=== PATIENT | female | born 1955 | race Caucasian/White ===

== ENCOUNTER 2017-03-10 11:09 | Emergency (ER) | payer OTHER ==
[2017-03-10 12:57] LABS: BASOPHILS % (AUTO) 0.2 %; EOSINOPHILS % (AUTO) 0.1 %; HGB - HEMOGLOBIN 12.4 g/dL (12.0-16.0); LYMPHOCYTES # (AUTO) 1.2 10^3/uL (1.5-3.5); LYMPHOCYTES % (AUTO) 8.1 %; MEAN CORPUSCULAR HEMOGLOBIN 31.8 pg (27.0-31.0); MEAN CORPUSCULAR HGB CONC 34.8 g/dL (32.0-36.0); MEAN CORPUSCULAR VOLUME 91.6 fL (81.0-99.0); MEAN PLATELET VOLUME 6.2 fL (7.9-10.8); MONOCYTES # (AUTO) 0.7 10^3/uL (0.0-1.0); MONOCYTES % (AUTO) 4.7 %; NEUTROPHILS # (AUTO) 13.4 10^3/uL (1.5-6.6); NEUTROPHILS % (AUTO) 86.9 %; PLT - PLATELET COUNT 298 10^3/uL (130-450); RED BLOOD COUNT 3.91 10^6/uL (4.20-5.40); RED CELL DISTRIBUTION WIDTH 13.1 % (12.0-15.0); WHITE BLOOD COUNT 15.4 x10^3/uL (4.8-10.8)
[2017-03-10] MEDS: SODIUM CHLORIDE 0.9% 1,000 ML IV ONE ×2 (13:00→13:57)
--- NOTE | 2017-03-10 13:08 | ED Physician Documentation ---
PD HPI NVD - Stated complaint Stated Complaint: DEHYDRATION - Chief complaint Chief Complaint: Fever - History obtained from History obtained from: Patient - History of Present Illness Timing - onset: How many days ago (several) Timing - duration: Days (several days of feeling ill with cough, nausea, fever, diarrhea. Not eating much due to lack of appetite. Went to Provider office today and was directed to come to the ED.) Timing - details: Gradual onset, Still present Associated symptoms: Fever, Abdominal pain (crampy intermittent.). No: Hematemesis, Melena, Dizzy, Near syncope / syncope Contributing factors: No: Bad food, Anticoagulated Worsened by: Eating Similar symptoms before: Has not had sx before Recently seen: Clinic Review of Systems Constitutional: reports: Fever, Chills, Myalgias Eyes: denies: Loss of vision Ears: denies: Ear pain Nose: denies: Rhinorrhea / runny nose, Congestion Throat: denies: Sore throat Respiratory: reports: Dyspnea, Cough, Wheezing GI: reports: Nausea, Diarrhea. denies: Abdominal Pain, Abdominal Swelling, Vomiting, Hematemesis, Bloody / black stool : denies: Dysuria, Frequency Skin: denies: Rash, Lesions, Abrasion (s), Laceration (s) PD PAST MEDICAL HISTORY - Past Medical History Cardiovascular: None Respiratory: None Neuro: None Endocrine/Autoimmune: None Psych: Depression - Past Surgical History General: Appendectomy - Present Medications Home Medications: Ambulatory Orders Medication Instructions Recorded Confirmed Albuterol Sulfate [Proair 03/10/17 Respiclick] Cephalexin [Keflex] 500 mg PO TID #15 capsule 03/10/17 Dexamethasone [Decadron] 4 mg PO DAILY #5 tablet 03/10/17 Diphenoxylate HCl/Atropine 1 each PO Q6H PRN #12 tablet 03/10/17 [Diphenoxylate-Atrop 2.5-0.025] Esomeprazole Magnesium 03/10/17 FLUoxetine [PROzac] 20 mg 03/10/17 Lisinopril 03/10/17 Loratadine 03/10/17 Ondansetron Odt [Zofran] 4 mg TL Q6H PRN #15 tablet 03/10/17 Topiramate 03/10/17 Venlafaxine [Effexor] 03/10/17 - Allergies Allergies/Adverse Reactions: Allergies Allergy/AdvReac Type Severity Reaction Status Date / Time codeine Allergy Itching Verified 03/10/17 11:17 - Social History Does the pt smoke?: No Smoking Status: Never smoker Does the pt drink ETOH?: No Does the pt have substance abuse?: Yes Substance Use and Type: Other - Immunizations Immunizations are current?: No - POLST Patient has POLST: No PD ED PE NORMAL - Vitals Vital signs reviewed: Yes - General General: Alert and oriented X 3, No acute distress, Well developed/nourished - HEENT HEENT: Ears normal, Pharynx benign. No: Moist mucous membranes - Neck Neck: Supple, no meningeal sign, No adenopathy - Cardiac Cardiac: RRR, No murmur - Respiratory Respiratory: Clear bilaterally - Abdomen Abdomen: Normal bowel sounds, Soft, Non distended, No organomegaly Results - Vitals Vitals: Vital Signs - 24 hr 03/10/17 03/10/17 03/10/17 11:22 13:01 16:46 Temperature 38.4 C H 35.7 C L Heart Rate 114 H 101 H 90 Respiratory 14 16 18 Rate Blood Pressure 97/70 121/74 137/63 H O2 Saturation 96 97 97 Oxygen O2 Source Room air - Labs Labs: Laboratory Tests 03/10/17 03/10/17 03/10/17 12:49 12:49 12:49 WBC 15.4 H RBC 3.91 L Hgb 12.4 Hct 35.8 L MCV 91.6 MCH 31.8 H MCHC 34.8 RDW 13.1 Plt Count 298 MPV 6.2 L Neut # 13.4 H Lymph # 1.[address] [place] # 0.7 Eos # 0.0 Baso # 0.0 Absolute Nucleated RBC 0.00 Nucleated RBC % 0.0 Sodium 135 Potassium 3.1 L Chloride 97 L Carbon Dioxide 20 L Anion Gap 18.0 H BUN 28 H Creatinine 1.8 H Estimated GFR (MDRD) 29 L Glucose 124 H Calcium 9.1 Magnesium 2.3 Total Bilirubin 1.3 H AST 44 H ALT 50 Alkaline Phosphatase 93 Total Protein 9.1 H Albumin 3.4 Globulin 5.7 H Albumin/Globulin Ratio 0.6 L Lipase 26 Urine Color Urine Clarity Urine pH Ur Specific [place] Urine Protein Urine Glucose (UA) Urine Ketones Urine Occult Blood Urine Nitrite Urine Bilirubin Urine Urobilinogen Ur Leukocyte Esterase Urine RBC Urine WBC Ur Epithelial Cells Ur Squamous Epith Cells Urine Bacteria Urine Casts Ur Microscopic Review Urine Culture Comments 03/10/17 14:00 WBC RBC Hgb Hct MCV MCH MCHC RDW Plt Count MPV Neut # Lymph # [place] # Eos # Baso # Absolute Nucleated RBC Nucleated RBC % Sodium Potassium Chloride Carbon Dioxide Anion Gap BUN Creatinine Estimated GFR (MDRD) Glucose Calcium Magnesium Total Bilirubin AST ALT Alkaline Phosphatase Total Protein Albumin Globulin Albumin/Globulin Ratio Lipase Urine Color BROWN Urine Clarity CLOUDY Urine pH 5.5 Ur Specific Sweet >=1.030 H Urine Protein 100 H Urine Glucose (UA) NEGATIVE Urine Ketones NEGATIVE Urine Occult Blood SMALL H Urine Nitrite NEGATIVE Urine Bilirubin NEGATIVE Urine Urobilinogen 4 H Ur Leukocyte Esterase MODERATE H Urine RBC 0-5 Urine WBC >25 H Ur Epithelial Cells RARE Transitional Ur Squamous Epith Cells FEW Squamous Urine Bacteria Many H Urine Casts 3-5 Hyaline Casts Ur Microscopic Review INDICATED Urine Culture Comments INDICATED - Rads (name of study) chest Radiology: Prelim report reviewed (normal xray/chest) PD MEDICAL DECISION MAKING - ED course Complexity details: reviewed results, re-evaluated patient (she is feeling more energetic and is hungry (good sign). ), considered differential, d/w patient Departure - Departure Disposition: Home, Self Care Clinical Impression: Dehydration, Hypokalemia, Viral illness UTI (urinary tract infection) Qualifiers: Urinary tract infection type: acute cystitis Hematuria presence: without hematuria Qualified Code(s): N30.00 - Acute cystitis without hematuria Diarrhea Qualifiers: Diarrhea type: presumed infectious Qualified Code(s): R19.7 - Diarrhea, unspecified Condition: Stable Record reviewed to determine appropriate education?: Yes Instructions: ED Dehydration, ED Diet High Potassium, ED UTI Cystitis Female Follow-Up: NATALIIA BENAVIDES [Primary Care Provider] - Prescriptions: Cephalexin [Keflex] 500 mg PO TID #15 capsule Dexamethasone [Decadron] 4 mg PO DAILY #5 tablet Diphenoxylate HCl/Atropine [Diphenoxylate-Atrop 2.5-0.025] 1 each PO Q6H PRN # 12 tablet PRN Reason: Diarrhea Ondansetron Odt [Zofran] 4 mg TL Q6H PRN #15 tablet PRN Reason: Nausea / Vomiting Comments: Drink lots of fluids. Small frequent meals of bland food initially. Ondansetron if needed for nausea. Lomotil if needed for diarrhea. Use Keflex as prescribed for the bladder infection. It sounds like he does have a viral illness with the respiratory symptoms nausea and diarrhea. There is no particular treatment for that per se. If we discover a bacterial cause of the diarrhea, will call you to change antibiotics or add another one. Dexamethasone daily for 5 days as an anti-inflammatory to help with cough and will also help with the rib pain. Add Tylenol if needed for pains. Discharge Date/Time: 03/10/17 17:07
[2017-03-10 13:09] LABS: ALBUMIN 3.4 g/dL (3.2-5.5); ALBUMIN/GLOBULIN RATIO 0.6 (1.0-2.2); BILIRUBIN,TOTAL 1.3 mg/dL (0.2-1.0); CALCIUM 9.1 mg/dL (8.5-10.3); CREATININE 1.8 mg/dL (0.4-1.0); TOTAL PROTEIN 9.1 g/dL (6.7-8.2)
[2017-03-10] MEDS ORDERED: SODIUM CHLORIDE 0.9% 1,000 ML IV ONE (13:41)
[2017-03-10] MEDS ORDERED: ONDANSETRON 4 MG/2 ML VIAL IVP STA (13:41)
[2017-03-10] MEDS ORDERED: POTASSIUM BICARB 25 MEQ TABLET PO STA (14:02)
[2017-03-10 14:11] LABS: GLUCOSE, URINE (UA) NEGATIVE (NEGATIVE); KETONES,URINE (UA) NEGATIVE (NEGATIVE); LEUKOCYTE ESTERASE, URINE MODERATE (NEGATIVE); NITRITE,URINE NEGATIVE (NEGATIVE); OCCULT BLOOD,URINE SMALL (NEGATIVE); PH,URINE 5.5 PH (5.0-7.5); PROTEIN,URINE 100 mg/dL (NEGATIVE); UROBILINOGEN,URINE 4 E.U./dL (NORMAL)
[2017-03-10 14:24] LABS: BILIRUBIN,URINE NEGATIVE (NEGATIVE); CLARITY,URINE CLOUDY (CLEAR); ICTOTEST,URINE NEGATIVE
[2017-03-10 14:25] LABS: BACTERIA,URINE Many /HPF (None Seen); CASTS, URINE 3-5 Hyaline Casts /LPF; RBC,URINE 0-5 /HPF (0-5); SQUAMOUS EPITHELIAL CELL,UR FEW Squamous (<= Few)
[2017-03-10 14:26] LABS: EPITHELIAL CELLS,UR RARE Transitional /HPF (<= Few)
--- NOTE | 2017-03-10 16:16 | XRAY Report ---
EXAM: CHEST RADIOGRAPHY EXAM DATE: 03/10/2017 03:58 PM. CLINICAL HISTORY: Cough and weakness. COMPARISON: Chest 09/09/2008. TECHNIQUE: 1 view. FINDINGS: Lungs/Pleura: No focal opacities evident. No pleural effusion. No pneumothorax. Mediastinum: Within exam limitations, the cardiomediastinal contour is normal. Other: None. IMPRESSION: Normal single view chest. [facility] Referring Provider Line: [phone] SITE ID: [id number]
[2017-03-10] MEDS ORDERED: KETOROLAC 60 MG/2 ML VIAL IVP STA (16:26)
[2017-03-10] MEDS ORDERED: cephALEXin 250 MG CAPSULE PO STA (16:27)
[2017-03-10 16:46] VITALS: BP 137/63
== END 2017-03-10 17:07 | disposition home or self-care (01) ==
LOC: ED 11:09
DX: E86.0 Dehydration (principal); E87.6 Hypokalemia; B34.9 Viral infection, unspecified; N30.00 Acute cystitis without hematuria
CPT/HCPCS: 36415; 71045; 80053; 81001; 83690; 83735; 85025; 87077; 87086; 87181; 96361; 96374; 96375; 99283; 99284; A9270; 81003

== ENCOUNTER 2017-03-17 13:27 | Emergency (ER) | payer OTHER ==
[2017-03-17] MEDS ORDERED: ONDANSETRON 4 MG/2 ML VIAL IVP STA (14:46)
[2017-03-17] MEDS ORDERED: ACETAMINOPHEN 1,000 MG/100 ML 100 ML IV STA (14:46)
[2017-03-17] MEDS ORDERED: SODIUM CHLORIDE 0.9% 1,000 ML IV ONE (14:46)
--- NOTE | 2017-03-17 15:03 | ED Physician Documentation ---
History of Present Illness - Stated complaint Stated Complaint: NAUSEA/FEVER/V/D/FEMALE - Chief complaint Chief Complaint: General - History obtained from History obtained from: Patient, Family (sister) - History of Present Illness Timing: How many days ago (several) - Additonal information Additional information: The patient is a 61-year-old female who complains of frontal headache, vomiting , and diarrhea, that has been increasing over the past 2 days. She also reports nonproductive cough. She denies fever. She was seen here 1 week ago and diagnosed with urinary tract infection and has been taking cephalexin since that time. Her dysuria has improved, but has not completely resolved. Review of Systems Constitutional: reports: Fatigue. denies: Fever Ears: denies: Tinnitus/ringing Nose: denies: Congestion Throat: denies: Sore throat Cardiac: denies: Chest pain / pressure Respiratory: reports: Cough. denies: Dyspnea GI: reports: Nausea, Vomiting, Diarrhea. denies: Abdominal Pain : reports: Dysuria Skin: denies: Rash Musculoskeletal: denies: Back pain, Extremity swelling Neurologic: reports: Generalized weakness, Headache. denies: Focal weakness, Numbness PD PAST MEDICAL HISTORY - Past Medical History Cardiovascular: None Respiratory: None Neuro: None Endocrine/Autoimmune: None Psych: Depression - Past Surgical History General: Appendectomy - Present Medications Home Medications: Ambulatory Orders Medication Instructions Recorded Confirmed Albuterol Sulfate [Proair 03/10/17 Respiclick] Cephalexin [Keflex] 500 mg PO TID #15 capsule 03/10/17 Dexamethasone [Decadron] 4 mg PO DAILY #5 tablet 03/10/17 Diphenoxylate HCl/Atropine 1 each PO Q6H PRN #12 tablet 03/10/17 [Diphenoxylate-Atrop 2.5-0.025] Esomeprazole Magnesium 03/10/17 FLUoxetine [PROzac] 20 mg 03/10/17 Lisinopril 03/10/17 Loratadine 03/10/17 Ondansetron Odt [Zofran] 4 mg TL Q6H PRN #15 tablet 03/10/17 Topiramate 03/10/17 Venlafaxine [Effexor] 03/10/17 Nitrofurantoin [Macrobid] 100 mg PO BID #10 capsule 03/17/17 - Allergies Allergies/Adverse Reactions: Allergies Allergy/AdvReac Type Severity Reaction Status Date / Time codeine Allergy Itching Verified 03/10/17 11:17 - Social History Does the pt smoke?: No Smoking Status: Never smoker Does the pt drink ETOH?: No Does the pt have substance abuse?: Yes - Immunizations Immunizations are current?: No - POLST Patient has POLST: No PD ED PE NORMAL - Vitals Vital signs reviewed: Yes (Borderline hypertension and tachycardia.) - General General: Alert and oriented X 3, Well developed/nourished - HEENT HEENT: Atraumatic, EOMI, Moist mucous membranes, Pharynx benign - Neck Neck: Supple, no meningeal sign, No adenopathy, No JVD - Cardiac Cardiac: No murmur - Respiratory Respiratory: No respiratory distress, Clear bilaterally - Abdomen Abdomen: Soft, Non tender, No organomegaly - Back Back: No CVA TTP - Derm Derm: No rash - Extremities Extremities: No edema, No calf tenderness / cord - Neuro Neuro: Alert and oriented X 3, No motor deficit, No sensory deficit, Normal speech Results - Vitals Vitals: Oxygen O2 Source Room air - Labs Labs: Microbiology 03/17/17 16:12 Urine Culture - Preliminary Urine,Clean Catch Laboratory Tests 03/17/17 03/17/17 03/17/17 14:50 14:50 16:12 WBC 11.0 H RBC 3.68 L Hgb 11.8 L Hct 33.6 L MCV 91.1 MCH 32.1 H MCHC 35.2 RDW 13.2 Plt Count 396 MPV 5.6 L Neut # 10.1 H Lymph # 0.5 L [place] # 0.2 Eos # 0.1 Baso # 0.0 Absolute Nucleated RBC 0.00 Nucleated RBC % 0.0 Sodium 134 L Potassium 3.6 Chloride 99 L Carbon Dioxide 23 Anion Gap 12.0 BUN 15 Creatinine 0.9 Estimated GFR (MDRD) 64 L Glucose 102 H Calcium 8.2 L Total Bilirubin 0.9 AST 15 ALT 36 Alkaline Phosphatase 58 Total Protein 7.6 Albumin 3.0 L Globulin 4.6 H Albumin/Globulin Ratio 0.7 L Lipase 33 Urine Color YELLOW Urine Clarity SL. CLOUDY Urine pH 6.5 Ur Specific [place] 1.015 Urine Protein NEGATIVE Urine Glucose (UA) NEGATIVE Urine Ketones NEGATIVE Urine Occult Blood NEGATIVE Urine Nitrite POSITIVE H Urine Bilirubin NEGATIVE Urine Urobilinogen 0.2 (NORMAL) Ur Leukocyte Esterase TRACE H Urine RBC 0-5 Urine WBC >25 H Ur Squamous Epith Cells FEW Squamous Urine Bacteria Many H Urine Yeast PRESENT Ur Microscopic Review INDICATED Urine Culture Comments INDICATED PD MEDICAL DECISION MAKING - ED course Complexity details: reviewed old records, reviewed results, re-evaluated patient , considered differential, d/w patient, d/w family ED course: The patient's presentation is significant for persistent urinary tract infection that has not responded to outpatient antibiotics with cephalexin. Her urinalysis is positive for greater than 25 white cells per high powered field and many bacteria. Urine culture and sensitivity are pending. She does not appear septic, and her white blood cell count is mildly elevated at 11.0. In addition she is volume depleted. Treatment in the emergency department included administration of normal saline 1 L IV, ondansetron 4 mg IV, Ofirmev 1 g IV, and Levaquin 500 mg IV. Following the above treatment she felt subjectively much improved. She is being discharged with prescription for Macrobid. I discussed with her and her sister the diagnosis, expected course of illness, antibiotic treatment and outpatient follow-up, as well as potentially worrisome signs or symptoms that should prompt reevaluation in the emergency department. Departure - Departure Disposition: 01 Home, Self Care Clinical Impression: Dehydration UTI (urinary tract infection) Qualifiers: Urinary tract infection type: acute cystitis Hematuria presence: without hematuria Qualified Code(s): N30.00 - Acute cystitis without hematuria Condition: Stable Instructions: ED UTI Cystitis Female Follow-Up: NATALIIA BENAVIDES [Primary Care Provider] - Prescriptions: Nitrofurantoin [Macrobid] 100 mg PO BID #10 capsule Comments: Drink plenty of fluids, including cranberry juice. Take Macrobid twice daily as prescribed. You can use Tylenol or ibuprofen as needed for fever or discomfort. Follow up with your primary physician next week as scheduled. Return to the emergency department if you develop increasing pain, fever with shaking chills, persistent vomiting, or otherwise worsening symptoms. Discharge Date/Time: 03/17/17 18:39
[2017-03-17 15:18] LABS: ALBUMIN/GLOBULIN RATIO 0.7 (1.0-2.2); BILIRUBIN,TOTAL 0.9 mg/dL (0.2-1.0); CALCIUM 8.2 mg/dL (8.5-10.3); CREATININE 0.9 mg/dL (0.4-1.0); TOTAL PROTEIN 7.6 g/dL (6.7-8.2)
[2017-03-17 15:26] LABS: BASOPHILS % (AUTO) 0.2 %; EOSINOPHILS # (AUTO) 0.1 10^3/uL (0.0-0.7); EOSINOPHILS % (AUTO) 0.6 %; HGB - HEMOGLOBIN 11.8 g/dL (12.0-16.0); LYMPHOCYTES # (AUTO) 0.5 10^3/uL (1.5-3.5); LYMPHOCYTES % (AUTO) 4.6 %; MEAN CORPUSCULAR HEMOGLOBIN 32.1 pg (27.0-31.0); MEAN CORPUSCULAR HGB CONC 35.2 g/dL (32.0-36.0); MEAN CORPUSCULAR VOLUME 91.1 fL (81.0-99.0); MEAN PLATELET VOLUME 5.6 fL (7.9-10.8); MONOCYTES # (AUTO) 0.2 10^3/uL (0.0-1.0); MONOCYTES % (AUTO) 2.2 %; NEUTROPHILS # (AUTO) 10.1 10^3/uL (1.5-6.6); NEUTROPHILS % (AUTO) 92.4 %; PLT - PLATELET COUNT 396 10^3/uL (130-450); RED BLOOD COUNT 3.68 10^6/uL (4.20-5.40); RED CELL DISTRIBUTION WIDTH 13.2 % (12.0-15.0)
[2017-03-17 16:19] LABS: BILIRUBIN,URINE NEGATIVE (NEGATIVE); GLUCOSE, URINE (UA) NEGATIVE (NEGATIVE); KETONES,URINE (UA) NEGATIVE (NEGATIVE); LEUKOCYTE ESTERASE, URINE TRACE (NEGATIVE); NITRITE,URINE POSITIVE (NEGATIVE); OCCULT BLOOD,URINE NEGATIVE (NEGATIVE); PH,URINE 6.5 PH (5.0-7.5); PROTEIN,URINE NEGATIVE (NEGATIVE); UROBILINOGEN,URINE 0.2 (NORMAL) E.U./dL (NORMAL)
[2017-03-17 16:21] LABS: CLARITY,URINE SL. CLOUDY (CLEAR)
[2017-03-17 16:45] LABS: BACTERIA,URINE Many /HPF (None Seen); RBC,URINE 0-5 /HPF (0-5); SQUAMOUS EPITHELIAL CELL,UR FEW Squamous (<= Few)
[2017-03-17 16:46] LABS: YEAST,URINE PRESENT
[2017-03-17] MEDS ORDERED: levoFLOXacin 500 MG/100 ML 500 MG/100 ML BAG IV ONE (17:03)
[2017-03-17 17:44] VITALS: BP 144/81
== END 2017-03-17 18:39 | disposition home or self-care (01) ==
LOC: ED 13:27
DX: E86.0 Dehydration (principal); N30.00 Acute cystitis without hematuria
CPT/HCPCS: 36415; 80053; 81001; 83690; 85025; 87077; 87086; 87181; 96365; 96367; 96375; 99283; 99284; J0131; 81003

== ENCOUNTER 2017-08-08 13:18 | Outpatient (CLI) | payer OTHER ==
[2017-08-08 13:28] LABS: BILIRUBIN,URINE NEGATIVE (NEGATIVE); GLUCOSE, URINE (UA) NEGATIVE (NEGATIVE); KETONES,URINE (UA) NEGATIVE (NEGATIVE); LEUKOCYTE ESTERASE, URINE TRACE (NEGATIVE); NITRITE,URINE NEGATIVE (NEGATIVE); OCCULT BLOOD,URINE NEGATIVE (NEGATIVE); PH,URINE 6.5 PH (5.0-7.5); PROTEIN,URINE NEGATIVE (NEGATIVE); UROBILINOGEN,URINE 0.2 (NORMAL) E.U./dL (NORMAL)
[2017-08-08 13:40] LABS: BACTERIA,URINE None Seen /HPF (None Seen); CLARITY,URINE CLEAR (CLEAR); RBC,URINE 0-5 /HPF (0-5); SQUAMOUS EPITHELIAL CELL,UR FEW Squamous (<= Few)
== END 2017-08-08 13:19 | disposition home or self-care (01) ==
LOC: LAB 13:18
PROVIDERS: ATTEND Physician Assistant
DX: N39.0 Urinary tract infection, site not specified (principal)
CPT/HCPCS: 81001; 87086

== ENCOUNTER 2021-03-17 09:55 | Day surgery (SDC) | payer OTHER ==
[~2021-03-17 09:55] MED LIST: CEFAZOLIN SODIUM IN 0.9 % NACL 2 GM/100 ML BAG IV ONE
--- NOTE | 2021-03-17 10:47 | ANESTHESIA ---
Pre-Anesthesia VS, & Labs - Diagnosis cholecystitis - Procedure laparoscopic cholecystectomy Vital Signs: Temp Pulse Resp BP Pulse Ox 37.1 C 98 16 123/81 H 95 03/17/21 10:16 03/17/21 10:16 03/17/21 10:16 03/17/21 10:16 03/17/21 10:16 Height: 5 ft 3 in Weight (kg): 83.1 kg Body Mass Index: 32.4 BMI Classification: Obese - NPO >8 hours - Is Patient ?: No Home Medications and Allergies Home Medications: Ambulatory Orders Atorvastatin [Lipitor] 20 mg PO DAILY 03/16/21 Fexofenadine HCl 180 mg PO DAILY 03/16/21 Nitrofurantoin [Macrobid] 100 mg PO DAILY 03/16/21 Oxybutynin [Ditropan] 15 mg PO DAILY 03/16/21 Pantoprazole [Protonix] 40 mg PO DAILY 03/16/21 Aspirin [Aspirin EC] 81 mg PO DAILY 03/17/21 Lisinopril [Zestril] 20 mg PO DAILY 03/17/21 FLUoxetine [PROzac] 20 mg PO DAILY 03/10/17 Topiramate 25 mg PO DAILY 03/10/17 Venlafaxine [Effexor] 37.5 mg PO DAILY 03/10/17 lisinopriL [Lisinopril] 20 mg PO DAILY 03/10/17 Atorvastatin [Lipitor] 20 mg PO DAILY 03/16/21 Fexofenadine HCl 180 mg PO DAILY 03/16/21 Nitrofurantoin [Macrobid] 100 mg PO DAILY 03/16/21 Oxybutynin [Ditropan] 15 mg PO DAILY 03/16/21 Pantoprazole [Protonix] 40 mg PO DAILY 03/16/21 Aspirin [Aspirin EC] 81 mg PO DAILY 03/17/21 Lisinopril [Zestril] 20 mg PO DAILY 03/17/21 Allergies/Adverse Reactions: Allergies Allergy/AdvReac Type Severity Reaction Status Date / Time codeine Allergy Itching Verified 03/10/17 11:17 Anes History & Medical History - Anesthetic History Anesthesia Complications: reports: No previous complications - Medical History Cardiovascular: reports: None Pulmonary: reports: None Gastrointestinal: reports: GERD Endocrine/Autoimmune: reports: None Smoking Status: Never smoker - Surgical History General: reports: Appendectomy, EGD, Other Orthopedic: reports: Other Exam General: Alert Dental: WNL Mouth Opening: Greater than 4 Fingerbreadths Neck Mobility: Normal Mallampati classification: II Thyromental Distance: greater than 6 cm Respiratory: Lungs clear Cardiovascular: Regular rate, Normal S1, Normal S2 Plan Anesthesia Type: General Consent for Procedure(s) Verified and Reviewed: Yes Code Status: Attempt Resuscitation ASA classification: 2-Mild systemic disease Is this case an emergency?: No
[2021-03-17] MEDS ORDERED: BUPIVACAINE 0.25% PF 30 ML VIAL ONE (10:49)
[2021-03-17] MEDS ORDERED: ONDANSETRON 4 MG/2 ML VIAL IVP PRN ×2 (10:51→13:03)
[2021-03-17] MEDS ORDERED: HYDROmorphone 0.5 MG/0.5 ML SYRINGE IVP PRN (10:51)
[2021-03-17] MEDS ORDERED: ATROPINE ABBOJECT 1 MG/10 ML SYRINGE IVP PRN (10:51)
[2021-03-17] MEDS ORDERED: fentaNYL 100 MCG/2 ML VIAL IVP PRN (10:51)
[2021-03-17] MEDS ORDERED: MORPHINE 2 MG/ML CARPUJECT IVP PRN (10:51)
[2021-03-17] MEDS ORDERED: ePHEDrine 50 MG/ML VIAL IVP PRN (10:51)
[2021-03-17] MEDS ORDERED: METOCLOPRAMIDE 10 MG/2 ML VIAL IVP PRN (10:51)
[2021-03-17] MEDS ORDERED: NALOXONE 0.4 MG/ML VIAL IVP PRN (10:51)
[2021-03-17] MEDS ORDERED: LACTATED RINGERS 1,000 ML IV SCH (11:00)
[2021-03-17] MEDS ORDERED: PROPOFOL 200 MG/20 ML VIAL IVP ONE ×2 (11:21→11:47)
[2021-03-17] MEDS ORDERED: SUGAMMADEX 200 MG/2 ML VIAL IVP ONE (11:21)
[2021-03-17] MEDS ORDERED: LIDOCAINE-MPF 2% 5 ML VIAL ONE (11:21)
[2021-03-17] MEDS ORDERED: ONDANSETRON 4 MG/2 ML VIAL ONE (11:21)
[2021-03-17] MEDS ORDERED: fentaNYL 100 MCG/2 ML VIAL ONE ×2 (11:21→11:44)
[2021-03-17] MEDS ORDERED: ROCURONIUM 50 MG/5 ML VIAL ONE (11:21)
[2021-03-17] MEDS ORDERED: KETOROLAC 30 MG/ML VIAL ONE (11:21)
[2021-03-17] MEDS ORDERED: MIDAZOLAM 2 MG/2 ML VIAL ONE (11:21)
[2021-03-17] MEDS ORDERED: BUPIVACAINE 0.25% PF 30 ML VIAL SUBQ ONE (11:49)
[2021-03-17] MEDS ORDERED: ePHEDrine 50 MG/ML VIAL IVP ONE (11:54)
[2021-03-17] MEDS ORDERED: HYDROcod/ACETAM 5/325 MG TABLET PO PRN (13:03)
[2021-03-17] MEDS ORDERED: LACTATED RINGERS 900 ML IV ONE (13:03)
--- NOTE | 2021-03-17 13:10 | OPERATIVE REPORT ---
Operative Report - General Procedure Date: 03/17/21 Planned Procedure: laparoscopic cholecystectomy Pre-Op Diagnosis: chronic cholecystitis Procedure Performed: laparoscopic cholecystectomy Post Op Diagnosis: chronic cholecystitis - Procedure Note Primary Surgeon: arden ariza Anesthesia Technique: General ET tube, Local Pathology: gallbladder Estimated Blood Loss (mL): 5 Drain/Tube Type: Other (none) Indications: pain Findings: large distended gallbladder 2/3 full with 1 cm stones Complications: none - Other Other Information/Narrative: The patient was properly identified, brought to the operating room and placed in supine position. Sequential compression devices were placed. General endotracheal anesthesia was induced. The patient was prepped and draped in a sterile fashion and given preoperative antibiotics. Local anesthetic was given to incision areas. An incision was made in the periumbilical area. Dissection proceeded down to fascia. The fascia was incised lifted upwards and abdomen entered with a Veress needle. CO2 was insufflated to a pressure of 15. An 11 mm trocar followed by a 30 degree scope was placed. There was no evidence of injury from Veress needle or trocar placement. Under direct vision 2 5 mm trochars were placed in the right upper quadrant and an 11 mm trocar was placed in the epigastrium. Body of the gallbladder was retracted anterior. Lateral attachments were partially taken down further mobilizing the gallbladder more anterior and away from the duodenum. The infundibulum of the gallbladder was t hen retracted right lateral and caudad. With minimal use of cautery a large bare cystic plate area or window was carefully created. The cystic duct was inspected from right lateral and left lateral positions. [] The cystic duct was then clipped at the gallbladder and 3 times slightly proximal and sharply divided. The cystic artery was clipped at the gallbladder and then 2 times slightly proximal and sharply divided. The gallbladder was mobilized off from the bed of the liver with hook cautery. The gallbladder was placed in Endo Catch bag and brought out through the epigastric trocar site. Hemostasis was assured. Trochars were removed under direct vision. Fascia at the larger trocar sites was closed with [id number] are running 0 Vicryl suture. Subcutaneous tissue was irrigated and skin closed with interrupted 4-0 Monocryl. Dressings were applied. Patient tolerated the procedure well was awakened and brought to recovery in good condition.
[2021-03-17] MEDS: HYDROmorphone 1 MG/ML CARPUJECT ONE ×2 (13:23→13:32)
[2021-03-17] MEDS ORDERED: HYDROcod/ACETAM 5/325 MG TABLET ONE (14:11)
[2021-03-17 14:32] VITALS: BP 130/82
== END 2021-03-17 09:56 | disposition home or self-care (01) ==
LOC: SDS 09:55
PROVIDERS: ATTEND Surgery
PROC: 0FT44ZZ Resection of Gallbladder, Percutaneous Endoscopic Approach (ICD-10-PCS; principal; 2021-03-17 11:15)
DX: K80.10 Calculus of gallbladder with chronic cholecystitis without obstruction (principal); K21.9 Gastro-esophageal reflux disease without esophagitis; E66.9 Obesity, unspecified; Z68.32 Body mass index [BMI] 32.0-32.9, adult
CPT/HCPCS: 47562; A9270; J0690; J1170; J7120

== ENCOUNTER 2021-06-23 15:14 | Outpatient (CLI) | payer MEDICARE, OTHER ==
--- NOTE | 2021-06-23 16:52 | DEXA Report ---
PROCEDURE: Dexa Spine and/or Hip INDICATIONS: POST MENOPAUSAL TECHNIQUE: Dual energy x-ray absorptiometry (DXA) was performed on a NEXGRID System. Regions measur ed are the AP Spine, femoral neck, and if needed forearm. COMPARISON: None. FINDINGS: Lumbar Spine: Bone Mineral Density 0.95 g/cm/cm,T score -2.0, osteopenia Left Hip: Bone Mineral Density 0.79 g/cm/cm,T score -0.8, Osteopenia Impression: Osteopenia. Patients with diagnosis of osteoporosis or osteopenia should have regular bone mineral density assess ment. For those eligible for Medicare, routine testing is allowed once every 2 years. Testing frequ ency can be increased for patients who have rapidly progressing disease or for those who are receivin g medical therapy to restore bone mass. Reviewed by: Checo Garnica MD on 06/23/2021 4:50 PM PDT Approved by: Checo Garnica MD on 06/23/2021 4:50 PM PDT Station ID: [id number]
== END 2021-06-23 15:15 | disposition home or self-care (01) ==
LOC: DI 15:14
PROVIDERS: ATTEND Nurse Practitioner Family
DX: Z78.0 Asymptomatic menopausal state (principal); M85.89 Other specified disorders of bone density and structure, multiple sites

== ENCOUNTER 2021-12-10 12:39 | Outpatient (CLI) | payer MEDICARE, OTHER ==
[2021-12-10 13:27] VITALS: BP 126/72
--- NOTE | 2021-12-10 13:27 | SLEEP CARE CONSULTATION ---
Information from patient questionnaire entered by Brenda Frias. I have reviewed and concur with the information entered by Brenda Frias. This document represents the service I personally performed and the decisions made by me, Kiley Kasper ARNP. History of Present Illness Service Date and Time: 12/10/2021 1239 Reason for Visit: New patient Chief Complaint: reports: Unrefreshed sleep, Snoring, Fatigue, Frequent awakenings at night Date of Onset: 30 + YEARS Usual bedtime: 9 PM BUT USUALLY READS 2-3 HRS Time it takes to fall asleep: 30-60 MIN Snores at night: Yes Observed to quit breathing while asleep: Yes Sleeps alone due to snoring: No Number of times waking at night: 3-5 Reasons for waking at night: reports: Snoring, Bathroom, Other (NOISE AND UNKNOWN REASONS ). denies: Choking, Gasping for air Toss, Turn, or Twitch while sleeping: Yes Recalls having dreams: Yes Usually gets out of bed at: 0900 Feels refreshed in the morning: No Morning headache: Yes (3-4 times a week; RESOLVES 2-3 HRS) Sleepy or fatigued during the day: No Ever fallen asleep while driving: No Takes day naps: No Dreams during day naps: No Prior sleep [facility]: Yes [facility] Type of Sleep Study: Polysomnography Additional HPI information: I had the pleasure of seeing ZIA LARSON today regarding the possibility of her having a sleep disorder. Her current complaints are unrefreshed sleep, snoring, fatigue and frequent night awakenings. She states that she did a sleep study a long time ago and was diagnosed with sleep apnea by [facility]. She tried using a CPAP for about 6 -12 months but could not tolerate the mask on. She heard about Inspire implant therapy and comes in to see if this is something she can do. She continues to have poor sleep and snoring. She wakes up frequently and has difficulty falling asleep. She has been taking melatonin as a supplement to help her sleep with mild success. - Parasomnia Symptoms Ever been unable to move upon waking from sleep: No Walks in sleep: No Talks in sleep: No Ever acted out dreams in sleep: No Ever felt weak in the knees when startled or emotional: No Bothered by creepy, crawly, restless sensations in legs: No Problems with memory or concentration: Yes Subjective Initial [place] Sleepiness Scale score: 6 (12-10-2021) Past Medical History Past Medical History: reports: Hypertension, Arthritis, Fibromyalgia, Anxiety, Depression, GERD, Other (GASTROESOPHAGEAL REFLUX DISEASE; Laci procedure; bunionectomy; appendectomy) Social History The patient's occupation is a RE. Patient is and lives in [place]. Have you smoked in the past 12 months: No Alcohol use: Yes Alcohol amount and frequency: 1-2 DRINKS MONTHLY Caffeine use: Yes Caffeine amount and frequency: 1-2 DRINKS PER MONTH Family History Family history of sleep disordered breathing: Yes Family Hx Sleep Apnea: Mother: Snoring, Father: Sleep apnea - Untreated, Sibling: Snoring, Grandparent: Snoring Allergies and Home Medications Known drug allergies: Yes (CODEINE) Drug allergies reviewed: Yes (codeine) Home medication list reviewed: Yes (see list in chart) Review of Systems Cardiovascular: reports: high blood pressure Respiratory: reports: shortness of breath Gastrointestinal: reports: heartburn, diarrhea Urinary: reports: frequency, urgency Neurological: reports: headaches Psychiatric: reports: anxiety, depression Ear/Nose/Throat: reports: nasal congestion, sinus problems, dry mouth/throat, tonsillectomy, wisdom teeth removed Musculoskeletal: reports: joint pain, neck pain, back pain Physical Exam Vital signs obtained and entered by: BRENDA Valdez MA Blood Pressure: 126/72 (left arm) Cuff size: regular Heart Rate: 87 O2 Saturation: 98 Height: 5 ft 3 in Weight: 187 lb 9.6 oz Body Mass Index: 33.2 BMI Classification: Obese Neck circumference: 16 Mouth and throat: narrow oropharynx Soft palate: long Hard palate: normal Uvula: normal Uvula visualization: 50% Mallampati Class II Tongue: enlarged in size with teeth cee on lateral edges Tonsils: small Neck: normal w/o lymphadenopathy or thyromegaly Heart: regular rate and rhythm Lungs: clear bilaterally Impression and Plan 1. Suspected Obstructive Sleep Apnea-Hypopnea Syndrome, as previously diagnosed and as still suggested by a history of loud and irregular snoring, observed cessation of breath while asleep, morning headache, frequent awakening during the night, unrefreshed sleep, cognitive impairment, and excessive daytime sleepiness. Narrow oropharynx and obesity are common predisposing factors for obstructive sleep apnea-hypopnea syndrome. I recommend proceeding to polysomnography to confirm the diagnosis and to assess severity. If the patient has significant sleep disordered breathing, a manual CPAP titration study will also be performed to find the optimal treatment pressure. I informed the patient of what the sleep studies involve and after some discussion, obtained agreement to proceed. The pathophysiology of obstructive sleep apnea-hypopnea syndrome was discussed with the patient and health risks of cardiovascular and cerebrovascular disease if not treated. Risks of drowsy driving discussed in detail and patient advised to avoid long distance driving and to drum puller at the first sign of drowsiness. Patient agreed to plan. * Schedule polysomnography * Avoid long distance driving or driving when feeling sleepy. * Avoid alcohol, sedative and muscle relaxant around bedtime. * Attempt to lose weight. * Review instructions provided by trained office staff on how to prepare for the sleep study. * Return for follow-up after sleep study completed. Counseling Topics: Weight loss health impact Visit Type: In Office Time Spent with Patient (minutes): 30 Provider Statement: I spent 100% of the Face to Face Visit with the patient with greater than 50% spent counseling the patient and coordination of care.
== END 2021-12-10 12:40 | disposition home or self-care (01) ==
LOC: SC 12:39
PROVIDERS: ATTEND Nurse Practitioner Family
DX: G47.33 Obstructive sleep apnea (adult) (pediatric) (principal); E66.9 Obesity, unspecified; Z68.33 Body mass index [BMI] 33.0-33.9, adult
CPT/HCPCS: 99203; G0463; 99212

== ENCOUNTER 2021-12-31 19:35 | Outpatient (CLI) | payer MEDICARE, OTHER | END 2021-12-31 19:36 | disposition home or self-care (01) | LOC: SC 19:35 | PROVIDERS: ATTEND Nurse Practitioner Family | DX: G47.33 Obstructive sleep apnea (adult) (pediatric) (principal); G47.61 Periodic limb movement disorder | CPT/HCPCS: 95810 ==

== ENCOUNTER 2022-01-07 13:49 | Outpatient (CLI) | payer MEDICARE, OTHER ==
--- NOTE | 2022-01-07 14:33 | SLEEP CARE CONSULTATION ---
Information from patient questionnaire entered by Brenda Frias. I have reviewed and concur with the information entered by Brenda Frias. This document represents the service I personally performed and the decisions made by , Kiley Kasper ARNP. History of Present Illness Service Date and Time: 01/07/2022 1349 Initial [place] Sleepiness Scale score: 6 Current [place] Sleepiness Scale score: 10 (01/07/2022) Additional HPI information: ZIA LARSON returns for follow up and results of the recently performed polysomnography. I explained the pathophysiology behind obstructive sleep apnea. We then spent quite a bit of time discussing different treatment options. For mild obstructive sleep apnea, surgery and oral appliance are alternatives to nasal CPAP therapy but in moderate or severe cases, nasal CPAP is the most effective and reliable treatment. Because apnea is primarily in supine position, then positional management therapy could be effective. Methods discussed such as positioning with pillows to prevent supine sleep. I reviewed the impact of weight changes on sleep apnea and strongly recommended losing weight. After some discussion, the patient opted to go with the nasal CPAP therapy. Nasal autoCPAP set at 4-15 cmH20 will be ordered with rationale explained. A manual titration study will be ordered if unable to find optimal pressure with office adjustments. I explained how CPAP machine works and what to expect when using the machine. Using CPAP every night in order to get used to it was emphasized. Patient advised to put CPAP mask on before getting into bed so as not to fall asleep without CPAP. To assist acclimation to CPAP use, it could also be used for a short time during day while reading or watching TV. The patient was instructed to call the CPAP supplier to discuss any mechanical problem that may occur. If the mask given is uncomfortable or is difficult to keep on through the night even with adjustment, contact the CPAP supplier as many will replace with another mask style if notified before 30 days. If snoring or perceives is not getting enough air or too much air from the machine, notify this office. Patient was cautioned about risks of drowsy driving until sleepiness symptoms resolve. Sleep Study - Results Type of Sleep Study: Polysomnography (COMPLETED 12/31/2021) Prior sleep studies: Yes Year and Where: [facility], [place] Polysomnography/Home Sleep Study results: IMPRESSION: The quality of the study is good. The patient had minimally reduced sleep efficiency. The sleep architecture was abnormal for sleep fragmentation and reduced amount of time spent in REM and slow wave sleep (N3). Respiratory monitoring showed severe obstructive sleep apnea-hypopnea (AHI = 35.2) associated with frequent arousals, oxyhemoglobin desaturation and moderate hypoxia (sweetie oxygen saturation of 74%). The respiratory events occurred only during supine sleep (supine AHI = 40.4; non- supine = 0.00). Snore was moderate to loud in intensity. There was mild periodic leg movement of sleep not contributing to the sleep fragmentation. Cardiac rhythm was normal sinus rhythm without significant arrhythmia. No abnormal behavior (parasomnia) observed during the night. Allergies and Home Medications Drug allergies reviewed: Yes (codeine) Home medication list reviewed: Yes (no change) Allergy and home medication list: Allergies codeine Allergy (Verified 12/10/21 13:08) Itching Review of Systems Review of systems same as previous: Yes (no changes) Physical Exam Vital signs obtained and entered by: BRENDA Valdez MA Blood Pressure: 114/66 (LEFT ARM) Heart Rate: 93 O2 Saturation: 97 Height: 5 ft 3 in Weight: 189 lb 9.6 oz Body Mass Index: 33.5 BMI Classification: Obese Impression and Plan 1. Obstructive Sleep Apnea-Hypopnea Syndrome, severe, with lowest oxygen saturation of 74%. Obviously this is the cause of the patients symptoms of unrefreshed sleep, and excessive daytime sleepiness. Positive pressure therapy could benefit hypertension, fibromyalgia, anxiety, depression and gastric reflux. As mentioned above, the patient will be started on nasal autoCPAP therapy with pressure set at 4-15 cmH2O. Compliance guidelines also reviewed. A copy of compliance guidelines will be given for reference at check out. 2. Hypoxemia, moderate, with a sweetie oxygen saturation of 74% and 26.8 minutes spent under 90%. Her baseline oxygen saturation was normal with an average oxygen saturation of 92%. 3. Obesity, unspecified. Currently patients BMI is 33.5. Obesity increases the risk of apnea, CPAP pressure requirements and overall health risks especially cardiovascular and diabetes. Thus patient is advised to lose weight. * Nasal auto CPAP therapy, pressure at 4-15 cm H2O. * Attempt to lose weight. * Avoid alcohol consumption near bedtime. * Avoid supine sleep until using CPAP. * The patient is again cautioned about driving until sleepiness completely resolves. * Return one month after CPAP obtained. I will assess response to therapy and compliance at that time. Counseling Topics: Weight loss health impact Visit Type: In Office Time Spent with Patient (minutes): 22 Provider Statement: I spent 100% of the Face to Face Visit with the patient with greater than 50% spent counseling the patient and coordination of care.
[2022-01-07 14:34] VITALS: BP 114/66
== END 2022-01-07 13:50 | disposition home or self-care (01) ==
LOC: SC 13:49
PROVIDERS: ATTEND Nurse Practitioner Family
DX: G47.33 Obstructive sleep apnea (adult) (pediatric) (principal); R09.02 Hypoxemia; E66.9 Obesity, unspecified; Z68.33 Body mass index [BMI] 33.0-33.9, adult
CPT/HCPCS: 99213; G0463; 99212

== ENCOUNTER 2022-04-14 11:33 | Outpatient (CLI) | payer MEDICARE, OTHER ==
[2022-04-14 12:16] VITALS: BP 124/84
--- NOTE | 2022-04-14 12:16 | SLEEP CARE CONSULTATION ---
Information from patient questionnaire entered by Gagandeep Frias. I have reviewed and concur with the information entered by Gagandeep Frias. This document represents the service I personally performed and the decisions made by , Kiley Kasper ARNP. History of Present Illness Service Date and Time: 04/14/2022 1133 Previous diagnosis: Severe, Obstructive Sleep Apnea-Hypopnea Syndrome AHI: 35.2 (in 2021) Reason for follow up: first compliance (F/U) Equipment type: CPAP (RESMED Airsense 11 s/u 01/18/2022) Equipment obtained from: Other ([facility]; got initial supplies) Mask style: Full face Backup mask available: No (will keep old mask when replaced) Last cushion change: 1 month Prior sleep [facility]: Yes [facility] Type of Sleep Study: Polysomnography (COMPLETED 12/31/2021) HPI additional information: ZIA LARSON was diagnosed to have severe, AHI 35.2, obstructive sleep apnea- hypopnea syndrome and returned today for CPAP therapy first compliance follow- up. Sleep Study - Results Type of Sleep Study: Polysomnography (COMPLETED 12/31/2021) Prior sleep studies: Yes [facility] CPAP Compliance Data - Data Reviewed with Patient Average duration of nightly device use: 7 HRS 0 MIN Compliance rate %: 93 (03/14/22-04/12/22; 30/30 days used) Current pressure setting (cmH2O): 4-15 (median 8.2, avg 13.0, max 14.2) Average residual AHI: 11.2 Central apnea: 0.3 Obstructive apnea: 2.1 Hypopnea: 1.9 Subjective Patient concerns: reports: mask leak noise, dry mouth, nose, throat. denies: aerophagia, mask discomfort, air blowing in eyes, condensation in mask/hose, nasal congestion, epistaxis Observed to snore while using device: No Current pressure setting perceived as: comfortable On therapy, patient: reports: sleeping better, awakening more refreshed, being more awake and alert during the day, more rested overall. denies: drowsiness while driving Initial [place] Sleepiness Scale score: 6 Current [place] Sleepiness Scale score: 6 (04/14/22) Allergies and Home Medications Drug allergies reviewed: Yes (codeine) Home medication list reviewed: Yes (no changes) Review of Systems Review of systems same as previous: Yes (no changes) Physical Exam Vital signs obtained and entered by: GAGANDEEP Valdez MA Blood Pressure: 124/84 (left arm ) Cuff size: regular Heart Rate: 88 O2 Saturation: 97 Height: 5 ft 3 in Weight: 191 lb 6.4 oz Body Mass Index: 33.9 BMI Classification: Obese Impression and Plan 1. Obstructive Sleep Apnea-Hypopnea Syndrome, severe, with good treatment compliance and fair apnea control with elevated AHI. On CPAP therapy, the patient has better sleep quality and is more rested overall. She is doing well and she does like the full facemask but she will sometimes find it dislodged and waking her up with the air leaking. She is able to readjust it and go back to sleep most nights. She feels like the pressure is a little low at the beginning of the night but otherwise she is tolerating the pressure well. The patients pressure will be changed to autoCPAP 13-16 cmH20 to reflect pressures being used and for elevated residual AHI. Patient advised to contact me if pressure change is uncomfortable so that it can be adjusted. Goals for apnea control discussed. Patient's apnea severity and rationale for treatment to reduce apnea, improve sleep quality and reduce cardiovascular and cerebrovascular events was reviewed. I also reviewed the benefit of consistent device use of CPAP for hypertension, gastric reflux, depression, anxiety and fibromyalgia. 2. Obesity, unspecified. Currently patients BMI is 33.9. Obesity increases the risk of apnea, CPAP pressure requirements and overall health risks especially cardiovascular and diabetes. Thus patient is advised to lose weight. * Change auto CPAP pressure to 13-16 cmH2O * Notify me if snoring with mask or feeling that the pressure is too much or too little * Attempt to lose weight * Call this office if any problems using CPAP * Return for follow up in 1-2 months, or sooner if concerns arise Counseling Topics: Spare mask, Weight loss health impact Visit Type: In Office Time Spent with Patient (minutes): 21 Provider Statement: I spent 100% of the Face to Face Visit with the patient with greater than 50% spent counseling the patient and coordination of care.
== END 2022-04-14 11:34 | disposition home or self-care (01) ==
LOC: SC 11:33
PROVIDERS: ATTEND Nurse Practitioner Family
DX: G47.33 Obstructive sleep apnea (adult) (pediatric) (principal); E66.9 Obesity, unspecified; Z68.33 Body mass index [BMI] 33.0-33.9, adult
CPT/HCPCS: 99213; G0463; 99212

== ENCOUNTER 2022-05-31 10:49 | Outpatient (CLI) | payer MEDICARE, OTHER ==
[2022-05-31 11:44] VITALS: BP 128/76
--- NOTE | 2022-05-31 11:44 | SLEEP CARE CONSULTATION ---
Information from patient questionnaire entered by Gagandeep Frias. I have reviewed and concur with the information entered by Gagandeep Frias. This document represents the service I personally performed and the decisions made by , Kiley Kasper ARNP. History of Present Illness Service Date and Time: 05/31/2022 1049 Previous diagnosis: Severe, Obstructive Sleep Apnea-Hypopnea Syndrome AHI: 35.2 (in 2021) Reason for follow up: other (7 WEEK F/U ) Equipment type: CPAP (RESMED Airsense 11 s/u 01/18/2022) Equipment obtained from: Other ([facility]; getting supplies as needed) Mask style: Full face Mask brand: Respironics ([employer]) Backup mask available: Yes (old mask) Last cushion change: 3 weeks Prior sleep [facility]: Yes [facility] Type of Sleep Study: Polysomnography (COMPLETED 12/31/2021) HPI additional information: ZIA LARSON was diagnosed to have severe, AHI 35.2, obstructive sleep apnea- hypopnea syndrome and returned today for CPAP therapy 7 week follow-up. Sleep Study - Results Type of Sleep Study: Polysomnography (COMPLETED 12/31/2021) Prior sleep studies: Yes [facility] CPAP Compliance Data - Data Reviewed with Patient Average duration of nightly device use: 6 HRS 32 MINS Compliance rate %: 87 (04/30/22-05/29/22; 26/30 days used) Current pressure setting (cmH2O): 13-16 (avg 15.0, max 15.5) Average residual AHI: 7.3 (RERA - 5.6) Central apnea: 0.5 Obstructive apnea: 1.0 Hypopnea: 1.8 Average large leak: 36.1 LPM Subjective Missed days of use due to: reports: travel Patient concerns: reports: mask leak noise, other (leaks from mask dislodging). denies: aerophagia, mask discomfort, air blowing in eyes, condensation in mask/hose, nasal congestion, dry mouth, nose, throat, epistaxis Observed to snore while using device: No Current pressure setting perceived as: comfortable On therapy, patient: reports: sleeping better, more rested overall. denies: awakening more refreshed, being more awake and alert during the day, drowsiness while driving Initial [place] Sleepiness Scale score: 6 Current [place] Sleepiness Scale score: 4 (05/31/22) Allergies and Home Medications Known drug allergies: Yes (codiene) Drug allergies reviewed: Yes Home medication list reviewed: Yes (no changes) Review of Systems Review of systems same as previous: Yes (no changes) Physical Exam Vital signs obtained and entered by: GAGANDEEP Valdez MA Blood Pressure: 128/76 (LEFT ARM) Cuff size: regular Heart Rate: 88 O2 Saturation: 98 Height: 5 ft 3 in Weight: 192 lb 12.8 oz Body Mass Index: 34.1 BMI Classification: Obese Impression and Plan 1. Obstructive Sleep Apnea-Hypopnea Syndrome, severe, with good treatment compliance and fair apnea control with mildly elevated residual AHI. On CPAP therapy, the patient has better sleep quality and is more rested overall. She has been trying her best to use her CPAP. She gets lots of mask leaking and noises. Her AHI may be falsely elevated due to mask leaks. Her CI was 0.5, OI 1.0, HI 1.8 and unknown at 3.9. I will make no changes to her pressure at this time. Patient advised to contact me if pressure change is uncomfortable so that it can be adjusted. Goals for apnea control discussed. Patient's apnea severity and rationale for treatment to reduce apnea, improve sleep quality and reduce cardiovascular and cerebrovascular events was reviewed. I also reviewed the benefit of consistent device use of CPAP for hypertension, gastric reflux, depression, anxiety and fibromyalgia. 2. Obesity, unspecified. Currently patients BMI is 34.1. Obesity increases the risk of apnea, CPAP pressure requirements and overall health risks especially cardiovascular and diabetes. Thus patient is advised to lose weight. * Continue auto CPAP pressure at 13-16 cmH2O * Notify me if snoring with mask or feeling that the pressure is too much or too little * Attempt to lose weight * Call this office if any problems using CPAP * Return for follow up in 3 months, or sooner if concerns arise Counseling Topics: Spare mask, Weight loss health impact Visit Type: In Office Time Spent with Patient (minutes): 22 Provider Statement: I spent 100% of the Face to Face Visit with the patient with greater than 50% spent counseling the patient and coordination of care.
== END 2022-05-31 10:50 | disposition home or self-care (01) ==
LOC: SC 10:49
PROVIDERS: ATTEND Nurse Practitioner Family
DX: G47.33 Obstructive sleep apnea (adult) (pediatric) (principal); E66.9 Obesity, unspecified; Z68.34 Body mass index [BMI] 34.0-34.9, adult
CPT/HCPCS: 99213; G0463; 99212

== ENCOUNTER 2022-07-09 13:32 | Outpatient (CLI) | payer MEDICARE, OTHER | END 2022-07-09 23:59 | disposition EMS.NT | LOC: EMS 13:32 | DX: R11.2 Nausea with vomiting, unspecified (principal); R19.7 Diarrhea, unspecified ==

== ENCOUNTER 2022-09-09 12:51 | Outpatient (CLI) | payer MEDICARE, OTHER ==
--- NOTE | 2022-09-09 13:12 | Sleep Patient Instructions ---
Sleep Center Visit Summary - Patient Visit Information Reason for Visit: 3 month follow up of CPAP therapy - Patient Instructions Additional Instructions: You were here for follow up of CPAP therapy. You will be continued on CPAP therapy with pressure at 13-16 cmH2O. A referral for Dr. Hinojosa for Inspire Implant evaluation was started and you should get a call from his office. You should follow up with sleep care in 6 months. You may contact us sooner for any questions or concerns. - Clinic Information Contact: [facility] [address] [place] [address] [email or web address] T: [phone]
--- NOTE | 2022-09-09 13:18 | SLEEP CARE CONSULTATION ---
Information from patient questionnaire entered by Brenda Frias. I have reviewed and concur with the information entered by Brenda Frias. This document represents the service I personally performed and the decisions made by , Kiley Kasper ARNP. History of Present Illness Service Date and Time: 09/09/2022 1251 Previous diagnosis: Severe, Obstructive Sleep Apnea-Hypopnea Syndrome AHI: 35.2 (in 2021) Reason for follow up: three month (F/U) Equipment type: CPAP (RESMED Airsense 11 s/u 01/18/2022) Equipment obtained from: Other ([facility]; getting supplies) Mask style: Full face (hybrid) Backup mask available: Yes (old mask) Last cushion change: over a month Prior sleep [facility]: Yes [facility] of [facility] Study: Polysomnography (COMPLETED 12/31/2021) HPI additional information: ЕЛЕНА LARSON was diagnosed to have severe, AHI 35.2, obstructive sleep apnea- hypopnea syndrome and returned today for CPAP therapy three month follow-up. Sleep Study - Results Type of Sleep Study: Polysomnography (COMPLETED 12/31/2021) Prior sleep studies: Yes [facility] Compliance Data - Data Reviewed with Patient Average duration of nightly device use: 4 HRS 47 MIN Compliance rate %: 90 (06/09/22-09/06/22; 85/90 days used) Current pressure setting (cmH2O): 13-16 Average residual AHI: 5.3 Central apnea: 0.4 Obstructive apnea: 0.6 Hypopnea: 0.9 Average large leak: 38.3 L/min Subjective Patient concerns: reports: mask leak noise, nasal congestion (has allergy issues), dry mouth, nose, throat. denies: aerophagia, mask discomfort, air blowing in eyes, condensation in mask/hose, epistaxis Observed to snore while using device: No Current pressure setting perceived as: comfortable On therapy, patient: reports: sleeping better, awakening more refreshed, being more awake and alert during the day, more rested overall. denies: drowsiness while driving Initial [place] Sleepiness Scale score: 6 Current [place] Sleepiness Scale score: 7 (09/09/22) Allergies and Home Medications Known drug allergies: Yes (codiene) Drug allergies reviewed: Yes Home medication list reviewed: Yes (increased Fluoxetine to 40 mg daily) Allergy and home medication list: Allergies codeine Allergy (Verified 09/08/22 11:46) Itching Review of Systems Review of systems same as previous: Yes (no changes) Physical Exam Vital signs obtained and entered by: BRENDA Valdez MA Blood Pressure: 138/90 (LEFT ARM) Cuff size: regular Heart Rate: 94 O2 Saturation: 98 Height: 5 ft 3 in Weight: 194 lb 9.6 oz Body Mass Index: 34.4 BMI Classification: Obese Impression and Plan 1. Obstructive Sleep Apnea-Hypopnea Syndrome, severe, with good treatment compliance and good apnea control with minimal elevation of residual AHI. On CPAP therapy, the patient has better sleep quality and is more rested overall. Patient states she still getting a lot of leaks around the mask and some dry mouth. She states she will find the mask off or the machine turned off during the night sometimes. She states she has not changed her mask cushion in a couple of months. I advised her to change her mask cushion which can reduce the mask leak noise and get a better fit of her mask. She voiced understanding. Patient's apnea severity and rationale for treatment to reduce apnea, improve sleep quality and reduce cardiovascular and cerebrovascular events was reviewed. I also reviewed the benefit of consistent device use of CPAP for hypertension, diabetes, gastric reflux, depression/anxiety and fibromyalgia. Елена is asking about the Inspire implantable sleep apnea device. Patient informed that they would have to qualify for this type of therapy. A referral is needed for an ENT specialist who would evaluate if Inspire therapy is indeed right for them. Qualifications to be evaluated for Inspire therapy include a previous diagnosis of moderate to severe obstructive sleep apnea. They must also have tried, failed or have been unable to tolerate CPAP treatment. They should also have a BMI of 32 or less and do not have any other active implantable devices present (like a pacemaker). Patient will need to undergo a sleep endoscopy where they are put under light sedation and the airway is examined by an endoscope to determine the cause of their sleep apnea. If it is determined that Inspire therapy is right for them than they may proceed to implantation. She would like to have a referral so she can explore this option for therapy, she just does not feel that CPAP is her best option. I will write the referral and follow up with her in about 6 months. 2. Obesity, unspecified. Currently patients BMI is 34.4. Obesity increases the risk of apnea, CPAP pressure requirements and overall health risks especially cardiovascular and diabetes. Thus patient is advised to lose weight. * Continue auto CPAP pressure at 13-16 cmH2O * Referral for Inspire Implant evaluation * Notify me if snoring with mask or feeling that the pressure is too much or too little * Attempt to lose weight * Call this office if any problems using CPAP * Return for follow up in 6 months, or sooner if concerns arise Counseling Topics: Spare mask, Weight loss health impact Visit Type: In Office Time Spent with Patient (minutes): 22 Provider Statement: I spent 100% of the Face to Face Visit with the patient with greater than 50% spent counseling the patient and coordination of care.
[2022-09-09 13:21] VITALS: BP 138/90
== END 2022-09-09 12:52 | disposition home or self-care (01) ==
LOC: SC 12:51
PROVIDERS: ATTEND Nurse Practitioner Family
DX: G47.33 Obstructive sleep apnea (adult) (pediatric) (principal); E66.9 Obesity, unspecified; Z68.34 Body mass index [BMI] 34.0-34.9, adult
CPT/HCPCS: 99213; G0463; 99212

== ENCOUNTER 2023-03-14 09:43 | Outpatient (CLI) | payer MEDICARE, OTHER ==
--- NOTE | 2023-03-14 10:09 | Sleep Patient Instructions ---
Sleep Center Visit Summary - Patient Visit Information Reason for Visit: 6-month follow-up for PAP therapy - Patient Instructions Additional Instructions: You were here for follow up of CPAP therapy. You will be continued on CPAP therapy with pressure at 13-16 cmH2O. You should follow up with sleep care in 12 months. You may contact us sooner for any questions or concerns. - Clinic Information Contact: [facility] [address] [place] [id number] [email or web address] T: [phone]
--- NOTE | 2023-03-14 10:13 | SLEEP CARE CONSULTATION ---
Information from patient questionnaire entered by Brenda Frias. I have reviewed and concur with the information entered by Brenda Frias. This document represents the service I personally performed and the decisions made by , Kiley Kasper ARNP. History of Present Illness Service Date and Time: 03/14/2023 0943 Previous diagnosis: Severe, Obstructive Sleep Apnea-Hypopnea Syndrome AHI: 35.2 (in 2021) Reason for follow up: six month (F/U) Equipment type: CPAP (RESMED Airsense 11 s/u 01/18/2022) Equipment obtained from: Other ([facility]; getting supplies) Mask style: Full face (hybrid) Backup mask available: Yes Last cushion change: 1 month Prior sleep [facility]: Yes [facility] Type of Sleep Study: Polysomnography (COMPLETED 12/31/2021) HPI additional information: ZIA LARSON was diagnosed to have severe, AHI 35.2, obstructive sleep apnea- hypopnea syndrome and returned today for CPAP therapy six month follow-up. Sleep Study - Results Type of Sleep Study: Polysomnography (COMPLETED 12/31/2021) Prior sleep studies: Yes [facility] Compliance Data - Data Reviewed with Patient Average duration of nightly device use: 4 HRS 34 MINS Compliance rate %: 88 (09/14/22-03/12/23; 167/180 days used) Current pressure setting (cmH2O): 13-16 Average residual AHI: 2.8 Central apnea: 0.3 Obstructive apnea: 0.2 Subjective Missed days of use due to: reports: travel Patient concerns: reports: mask leak noise, dry mouth, nose, throat (dry mouth, has chronic issues due to medication), other (headache). denies: aerophagia, mask discomfort, air blowing in eyes, condensation in mask/hose, nasal congestion, epistaxis Observed to snore while using device: No Current pressure setting perceived as: comfortable On therapy, patient: reports: sleeping better, awakening more refreshed. denies: drowsiness while driving Initial [place] Sleepiness Scale score: 6 Current [place] Sleepiness Scale score: 9 Allergies and Home Medications Known drug allergies: Yes (codeine) Drug allergies reviewed: Yes Home medication list reviewed: Yes (no changes) Allergy and home medication list: Allergies codeine Allergy Itching Review of Systems Review of systems same as previous: Yes (scheduled for Inspire at end of month) Physical Exam Vital signs obtained and entered by: WILLA STARK Blood Pressure: 129/84 Cuff size: regular (left arm) Heart Rate: 86 O2 Saturation: 99 Height: 5 ft 3 in Weight: 176 lb 6.4 oz Body Mass Index: 31.2 BMI Classification: Obese Impression and Plan 1. Obstructive Sleep Apnea-Hypopnea Syndrome, severe, with good treatment compliance and good apnea control. On CPAP therapy, the patient has better sleep quality and is more rested overall. Patient is scheduled for Inspire implant at the end of February. She states she will not be able to use the Inspire implant until March after healing has occurred. She may return here for follow-up sleep study with the Inspire in place but we will wait to see what Dr. Hinojosa requests. She voiced understanding. Patient's apnea severity and rationale for treatment to reduce apnea, improve sleep quality and reduce cardiovascular and cerebrovascular events was reviewed. I also reviewed the benefit of consistent d evice use of CPAP for hypertension, diabetes, gastric reflux, depression/anxiety and fibromyalgia. 2. Obesity, unspecified. Currently patients BMI is 31.2. Obesity increases the risk of apnea, CPAP pressure requirements and overall health risks especially cardiovascular and diabetes. Thus patient is advised to lose weight. * Continue auto CPAP pressure at 13-16 cmH2O * Continue with Inspire implant, followup as needed * Notify me if snoring with mask or feeling that the pressure is too much or too little * Attempt to lose weight * Call this office if any problems using CPAP * Return for follow up in 12 months, or sooner if concerns arise Counseling Topics: Spare mask, Weight loss health impact Follow up with Sleep Care in: other (or after Inspire implant as needed) Visit Type: In Office Time Spent with Patient (minutes): 16 Provider Statement: I spent 100% of the Face to Face Visit with the patient with greater than 50% spent counseling the patient and coordination of care.
[2023-03-14 10:17] VITALS: BP 129/84; O2SAT 99
== END 2023-03-14 09:44 | disposition home or self-care (01) ==
LOC: SC 09:43
PROVIDERS: ATTEND Nurse Practitioner Family
DX: G47.33 Obstructive sleep apnea (adult) (pediatric) (principal); E66.9 Obesity, unspecified; Z68.31 Body mass index [BMI] 31.0-31.9, adult
CPT/HCPCS: 99212; G0463

== ENCOUNTER 2023-11-23 10:49 | Outpatient (CLI) | payer MEDICARE, OTHER ==
--- NOTE | 2023-11-23 23:07 | XRAY Report ---
PROCEDURE: Hand 3+V BL INDICATIONS: R KNEE AND BILATERAL HAND PAIN TECHNIQUE: 3 views of the hand(s) acquired. COMPARISON: None. FINDINGS: Bones: No acute fracture or dislocation. Significantly shortened bilateral third through fifth metac arpal bones likely represent congenital process. Osteoarthritic changes are noted throughout bilatera l hand and wrist joints more notably involving bilateral second through fifth PIP and DIP joints with features in left second and fifth ERP joints as well as right third through fifth ERP joints suggest jazzy of erosive osteoarthritis. No gross erosive changes are seen in the MCP joints. Periarticular ost eopenia associated with bilateral MCP joints and PIP joints are seen. Soft tissues: No suspicious soft tissue calcifications or masses. IMPRESSION: 1. Shortened the lateral third through fifth metacarpal bones likely represent a congenital process. No acute fracture or dislocation. 2. Osteoarthritic changes in bilateral hand and wrist joints with features suggestive of erosive oste oarthritis in bilateral DIP joints as above. 3. Periarticular radiolucency surrounding bilateral MCP joints which may suggest superimposed inflamm atory arthropathy. Reviewed by: Sven Ingram MD on 11/23/2023 11:05 PM PDT Approved by: Sven Ingram MD on 11/23/2023 11:05 PM PDT Station ID: [id number]
--- NOTE | 2023-11-23 23:30 | XRAY Report ---
PROCEDURE: Knee 3V RT INDICATIONS: R KNEE AND BILATERAL HAND PAIN TECHNIQUE: 3 views of the knee(s) were acquired. COMPARISON: None. FINDINGS: Bones: No fractures or dislocations. Mild to moderate tricompartmental osteoarthritis is seen most notably in medial and lateral femoral tibial compartments with joint space narrowing, subchondral scl erosis and small marginal osteophyte formation. No significant patellar subluxation. No suspicious swati ny lesions. Soft tissues: Small to moderate suprapatellar knee joint effusion. No suspicious soft tissue calcifi cations or masses. IMPRESSION: No acute knee fracture or dislocation. Mild to moderate tricompartmental osteoarthritis more notably in medial and lateral femorotibial compartments. Small to moderate suprapatellar joint effusion. Reviewed by: Sven Vital MD on 11/23/2023 11:29 PM PDT Approved by: Sven Vital MD on 11/23/2023 11:29 PM PDT Station ID: [id number]
== END 2023-11-23 10:50 | disposition home or self-care (01) ==
LOC: DI 10:49
PROVIDERS: ATTEND Nurse Practitioner Family
DX: M17.11 Unilateral primary osteoarthritis, right knee (principal); M25.461 Effusion, right knee; M19.041 Primary osteoarthritis, right hand; M19.042 Primary osteoarthritis, left hand; M19.031 Primary osteoarthritis, right wrist; M19.032 Primary osteoarthritis, left wrist